=== PATIENT | male | born 1965 | race Caucasian/White ===

== ENCOUNTER 2022-07-22 22:17 | Emergency (ER) | payer OTHER ==
[2022-07-22 22:22] VITALS: BP 177/89; PULSE 57; RESP 18; TEMP 98; BMI 31.0
[2022-07-22] MEDS ORDERED: SODIUM CHLORIDE 0.9% 500 ML INFUS.BAG IV ONE (23:06)
[2022-07-23 00:12] LABS: BASO % 0.3 % (0-2.0); EOS % 0.5 % (0-4.5); HEMATOCRIT 40.3 % (35.4-49); HEMOGLOBIN 13.7 GM/dL (11.7-16.9); LYMPH % 19.1 % (8-40); MCH 28.9 pg (25.7-33.7); MEAN CELL VOLUME 84.8 fl (80-96); MEAN PLT VOLUME 8.9 fl (7.5-11.1); MONO % 5.2 % (3.8-10.2); NEUT % 74.9 % (42.8-82.8); PLATELET COUNT 233 10^3/uL (134-434); RBC 4.75 M/mm3 (4.00-5.60); RDW 13.1 % (11.9-15.9); WHITE BLOOD COUNT 10.6 K/mm3 (4.0-10.0)
[2022-07-23 00:21] LABS: INR 1.03 (0.83-1.09)
[2022-07-23 00:23] LABS: ACTIVATED PTT 32.9 SECONDS (25.2-36.5)
[2022-07-23 00:40] LABS: CALCIUM 9.5 mg/dL (8.5-10.1)
[2022-07-23 00:41] LABS: BLOOD UREA NITROGEN 18.1 mg/dL (7-18)
[2022-07-23 00:44] LABS: CREATININE 1.1 mg/dL (0.55-1.3)
[2022-07-23 00:45] LABS: BILIRUBIN,TOTAL 0.3 mg/dL (0.2-1); TOT PROT 7.5 g/dl (6.4-8.2)
== END 2022-07-23 02:03 | disposition home or self-care (01) ==
LOC: JER 22:17
DX: R42 Dizziness and giddiness (principal); R03.0 Elevated blood-pressure reading, without diagnosis of hypertension; Z20.822 Contact with and (suspected) exposure to COVID-19
CPT/HCPCS: 0241U-QW; 36415; 70450-TC; 71046-TC-FY; 80053; 84484; 85025; 85610; 85730; 93005; 93010; 99285-25